=== PATIENT | male | born 1935 | race African-American/Black ===

== ENCOUNTER 2017-12-14 18:41 | Inpatient (IN) | payer MEDICARE, OTHER ==
[~2017-12-14] VITALS: Ht 177.8 cm; Wt 87.1 kg
[2017-12-14 19:17] VITALS: BP 185/65
[2017-12-14 19:25] LABS: BASOPHILS % (AUTO) 0.8 % (0.0-2.0); EOSINOPHILS % (AUTO) 0.3 % (0.0-3.0); HEMATOCRIT 27.8 % (42.0-52.0); HEMOGLOBIN 8.4 G/DL (14.2-18.0); LYMPHOCYTES % (AUTO) 15.3 % (20.0-45.0); MEAN CORPUSCULAR VOLUME 89 FL (80-99); MONOCYTES % (AUTO) 4.8 % (1.0-10.0); NEUTROPHILS % (AUTO) 78.7 % (45.0-75.0); PLATELET COUNT 237 K/UL (150-450); RED BLOOD COUNT 3.14 M/UL (4.70-6.10); RED CELL DISTRIBUTION WIDTH 14.4 % (11.6-14.8); WHITE BLOOD COUNT 5.3 K/UL (4.8-10.8)
[2017-12-14 19:26] LABS: INR 1.3 (0.9-1.1)
[2017-12-14 19:33] LABS: ANION GAP 8 mmol/L (5-15); BLOOD UREA NITROGEN 41 mg/dL (7-18); CALCIUM 9.2 MG/DL (8.5-10.1); CARBON DIOXIDE 27 MMOL/L (21-32); CHLORIDE 108 MMOL/L (98-107); CREATININE 3.7 MG/DL (0.55-1.30); POTASSIUM 4.1 MMOL/L (3.5-5.1); SODIUM 143 MMOL/L (136-145)
[2017-12-14 19:41] LABS: ALANINE AMINOTRANSFERASE 10 U/L (12-78); ALBUMIN 2.8 G/DL (3.4-5.0); ALBUMIN/GLOBULIN RATIO 0.8 (1.0-2.7); ALKALINE PHOSPHATASE 53 U/L (46-116); ASPARTATE AMINO TRANSFERASE 29 U/L (15-37); BILIRUBIN,TOTAL 0.7 MG/DL (0.2-1.0); CREATINE KINASE 104 U/L (26-308)
[2017-12-14] MEDS ORDERED: ASPIR 8181 MG ORAL (20:04)
[2017-12-14] MEDS ORDERED: ADALAT20 MG ORAL (20:04)
[2017-12-14] MEDS ORDERED: Nitroglycerin 2% oint pkt TOPIC ONE (20:30)
[2017-12-14] MEDS ORDERED: NIFEdipine 10mg cap ORAL STA (20:30)
--- NOTE | 2017-12-14 20:45 | Emergency Room Report ---
History of Present Illness General Chief Complaint: Generalized Weakness Source: Patient Present Illness HPI Patient presents with generalized weakness and HUTCHISON. H/O CHF in past. Not on Lasix at this time. Denies chest pain. Denies fevers or chills. Unable to walk to store to get food because of weakness and edema. Stopped Nifedipine because he ran out. Stopped iron. Stools loose. Now normal color as not on iron. Denies SI or HI. 8 months ago, was evaluated for moving to assisted living by [facility], but at that time he felt he could live by himself. 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 Reviewed Nursing Documentation: PMH: Agreed; PSxH: Agreed Nursing Documentation-PM Past Medical History: No History, Except For Hx Hypertension: Yes Review of Systems All Other Systems: negative except mentioned in HPI Physical Exam Vital Signs Date Time Temp Pulse Resp B/P (MAP) Pulse Ox O2 Delivery O2 Flow Rate FiO2 12/14/17 18:34 99.7 74 17 190/88 99 Room Air 99.7 Sp02 EP Interpretation: reviewed, normal General Appearance: no apparent distress, alert, GCS 15, non-toxic, Chronically Ill Head: normocephalic, atraumatic Eyes: bilateral eye PERRL, bilateral eye conjunctivae pale ENT: moist mucus membranes Respiratory: decreased breath sounds, crackles Cardiovascular #1: JVD - clavicle at 45 degrees, bradycardia, systolic murmur - 4/6 LSB, edema - 4+ brawney bilat - also 3+ edema of hands to elbows Gastrointestinal: normal bowel sounds, non tender, soft, no mass Genitourinary: no CVA tenderness Musculoskeletal: normal range of motion, no calf tenderness, Stephen's Sign negative Neurologic: alert, oriented x3, sensory intact, speech normal, motor weakness - bilateral LE Psychiatric: depressed affect Skin: other - brawney edema and chronic changes LE Procedures Critical Care Time Critical Care Time Total Critical Care Time: 30 min bedside evaluation and treatment excludes procedures (EKG). Reason for critical care: NSTEMI, HTN, CHF, UTI, sharif, renal failure, hypothyroidism Possible complications: hypotension, hypertension, CO, shock, arrhythmias, metabolic acidosis, end organ damage, respiratory failure. Interventions: lasix, aspirin, tx HTN, antibiotics, repeated evaluations Course: Patient with dyspnea and weakness. CHF clinically with initial tx. + troponin called. Tx aspirin. Also addressed HTN. Bradycardic, unable to give beta blockers. UTI tx with abx. Discussed with admitting MD. Improved with treatment. Consultations: nursing staff, EMS, admitting MD Performed by: Dr. Ramos Tolerated well condition = serious Medical Decision Making Diagnostic Impression: Primary Impression: NSTEMI (non-ST elevated myocardial infarction) Additional Impressions: CHF (congestive heart failure) Qualified Codes: I50.33 - Acute on chronic diastolic (congestive) heart failure Adult hypothyroidism Renal failure Qualified Codes: N17.0 - Acute kidney failure with tubular necrosis; N18.3 - Chronic kidney disease, stage 3 (moderate) Anemia Qualified Codes: D64.9 - Anemia, unspecified UTI (urinary tract infection) Qualified Codes: N39.0 - Urinary tract infection, site not specified Edema Qualified Codes: R60.9 - Edema, unspecified Valvular heart disease Bradycardia ER Course Patient with obvious anasarca and dyspnea with weakness. DDx: occult infection , chf, AMI, malnutrition, hypothyroidism amongst others. Evaluation with EKG, CXR and labs. Treatment with lasix. Cardiac evaluation. Unstable social situation. Systolic murmur of concern. EKG with bradycardia. CXR CHF with larger L effusion. Troponin elevated. Patient given aspirin. Labs with ARF, anemia. Pyuria. Blood pressure high. Patient treated with hydralazine, nifedipine as he has not taken a dose and also Nitrol paste. BP improved. Antibiotics started for UTI. Concern for sharif and edema with elevated TSH. Consider myxedema. Admit SDU, Dr. Gaston. Laboratory Tests Test 12/14/17 19:00 White Blood Count 5.3 K/UL (4.8-10.8) Red Blood Count 3.14 M/UL (4.70-6.10) L Hemoglobin 8.4 G/DL (14.2-18.0) L Hematocrit 27.8 % (42.0-52.0) L Mean Corpuscular Volume 89 FL (80-99) Mean Corpuscular Hemoglobin 26.7 PG (27.0-31.0) L Mean Corpuscular Hemoglobin Concent 30.2 G/DL (32.0-36.0) L Red Cell Distribution Width 14.4 % (11.6-14.8) Platelet Count 237 K/UL (150-450) Mean Platelet Volume 7.4 FL (6.5-10.1) Neutrophils (%) (Auto) 78.7 % (45.0-75.0) H Lymphocytes (%) (Auto) 15.3 % (20.0-45.0) L Monocytes (%) (Auto) 4.8 % (1.0-10.0) Eosinophils (%) (Auto) 0.3 % (0.0-3.0) Basophils (%) (Auto) 0.8 % (0.0-2.0) Erythrocyte Sedimentation Rate 27 MM/HR (0-20) H Prothrombin Time 13.2 SEC (9.30-11.50) H Prothrombin Time INR 1.3 (0.9-1.1) H PTT 30 SEC (23-33) Sodium Level 143 MMOL/L (136-145) Potassium Level 4.1 MMOL/L (3.5-5.1) Chloride Level 108 MMOL/L (98-107) H Carbon Dioxide Level 27 MMOL/L (21-32) Anion Gap 8 mmol/L (5-15) Blood Urea Nitrogen 41 mg/dL (7-18) H Creatinine 3.7 MG/DL (0.55-1.30) H Estimate Glomerular Filtration Rate mL/min (>60) Glucose Level 95 MG/DL (74-106) Lactic Acid Level 1.70 mmol/L (0.4-2.0) Calcium Level 9.2 MG/DL (8.5-10.1) Total Bilirubin 0.7 MG/DL (0.2-1.0) Aspartate Amino Transferase (AST) 29 U/L (15-37) Alanine Aminotransferase (ALT) 10 U/L (12-78) L Alkaline Phosphatase 53 U/L (46-116) Total Creatine Kinase 104 U/L (26-308) Troponin I 0.090 ng/mL (0.000-0.056) Pro-B-Type Natriuretic Peptide > 35182 pg/mL (0-125) H Total Protein 6.2 G/DL (6.4-8.2) L Albumin 2.8 G/DL (3.4-5.0) L Globulin 3.4 g/dL Albumin/Globulin Ratio 0.8 (1.0-2.7) L Thyroid Stimulating Hormone (TSH) 7.706 uiU/mL (0.358-3.740) EKG Diagnostic Results Rate: bradycardiac Rhythm: other - sharif ST Segments: no acute changes Rhythm Strip Diag. Results EP Interpretation: yes Rhythm: no PVC's, other - sharif Chest X-Ray Diagnostic Results Chest X-Ray Diagnostic Results : Chest X-Ray Ordered: Yes # of Views/Limited/Complete: 1 View Indication: Shortness of Breath EP Interpretation: Yes Interpretation: no pneumothorax, other - chf, L effusion Impression: Other Electronically Signed by: Electronically signed by Orion Ramos MD Last Vital Signs Date Time Temp Pulse Resp B/P (MAP) Pulse Ox O2 Delivery O2 Flow Rate FiO2 12/15/17 00:09 Room Air 12/15/17 00:09 98.0 48 20 126/60 (82) 96 98.0 Status: improved Disposition: ADMITTED INPATIENT Condition: Serious Referrals: [facility],REFERRING (PCP) Orion Ramos M.D. Dec 14, 2017 20:45
[2017-12-14] MEDS ORDERED: Ketorolac 30mg Inj IV PRN (21:15)
[2017-12-14] MEDS ORDERED: Nitroglycerin Subl 0.4mg tab SL PRN (21:15)
[2017-12-14] MEDS ORDERED: Albuterol/Ipratropium 3ml neb HHN PRN (21:15)
[2017-12-14] MEDS ORDERED: Morphine Sulfate 2mg/ml Inj(IV/IM USE ONLY) IVP PRN (21:15)
[2017-12-14] MEDS ORDERED: dilTIAZem HCl 25mg/5ml Inj IV PRN (21:15)
[2017-12-14] MEDS ORDERED: Miralax 17gm pkt ORAL PRN (21:15)
[2017-12-14 21:16] LABS: APPEARANCE,URINE SLIGHTLY CLOUDY; BILIRUBIN, URINE NEGATIVE (NEGATIVE); COLOR,URINE PALE YELLOW; GLUCOSE, URINE (UA) NEGATIVE (NEGATIVE); KETONES,URINE NEGATIVE (NEGATIVE); LEUKOCYTE ESTERASE ,URINE 3+ (NEGATIVE); NITRITE,URINE NEGATIVE (NEGATIVE); PH,URINE 5 (4.5-8.0); PROTEIN,URINE 3+ (NEGATIVE); UROBILINOGEN,URINE NORMAL MG/DL (0.0-1.0)
[2017-12-14 21:23] VITALS: BP 173/52
[2017-12-14] MEDS ORDERED: cefTRIAXone 1 GM in D5W 55 ML IVPB ONE (21:45)
[2017-12-14 22:00] VITALS: BP 128/43
[2017-12-14 22:35] VITALS: BP 138/58
[2017-12-15 00:09] VITALS: BP 126/60
[2017-12-15 04:00] VITALS: BP 123/56
[2017-12-15 05:19] LABS: BASOPHILS % (AUTO) 0.8 % (0.0-2.0); EOSINOPHILS % (AUTO) 0.3 % (0.0-3.0); HEMATOCRIT 30.3 % (42.0-52.0); HEMOGLOBIN 9.2 G/DL (14.2-18.0); MEAN CORPUSCULAR VOLUME 88 FL (80-99); MONOCYTES % (AUTO) 5.7 % (1.0-10.0); NEUTROPHILS % (AUTO) 71.2 % (45.0-75.0); PLATELET COUNT 240 K/UL (150-450); RED BLOOD COUNT 3.44 M/UL (4.70-6.10); RED CELL DISTRIBUTION WIDTH 14.7 % (11.6-14.8); WHITE BLOOD COUNT 6.1 K/UL (4.8-10.8)
[2017-12-15 05:52] LABS: INR 1.2 (0.9-1.1)
[2017-12-15 06:37] LABS: CHOLESTEROL 194 MG/DL (< 200); HDL CHOLESTEROL 50 MG/DL (40-60); TRIGLYCERIDES 91 MG/DL (30-150)
[2017-12-15 08:00] VITALS: BP 165/92
[2017-12-15] MEDS ORDERED: Aspirin Baby 81mg ORAL SCH (09:00)
[2017-12-15] MEDS ORDERED: Heparin 5000 units/ml inj SUBQ SCH (09:00)
[2017-12-15] MEDS: Enalaprilat 2.5mg/2ml Inj IV PRN ×2 (09:05→16:14)
--- NOTE | 2017-12-15 10:09 | History and Physical ---
History of Present Illness General Reason for Hospitalization: Generalized Weakness Present Illness HPI 82 year old male with hx of HTN, brought in by paramedics with CC of increased swelling of legs and increased weakness. He is not able to walk any more. Allergies: Coded Allergies: AMOXICILLIN (Verified Allergy, Unknown, 01/01/11) Medication History Scheduled Aspirin* (Aspir 81*), 81 MG ORAL DAILY, (Reported) Nifedipine (Nifedipine*), 30 MG ORAL DAILY, (Reported) Patient History Healthcare decision maker none Resuscitation status Full Code Advanced Directive on File No Past Medical/Surgical History Past Medical/Surgical History: (1) Adult hypothyroidism (2) Edema Review of Systems All Other Systems: negative except mentioned in HPI Physical Exam General Appearance: WD/WN Lines, tubes and drains: peripheral HEENT: normocephalic, anicteric Respiratory/Chest: chest wall non-tender, lungs clear Cardiovascular/Chest: normal peripheral pulses, normal rate Abdomen: normal bowel sounds, non tender Extremities: severe edema Skin Exam: normal pigmentation Last 24 Hour Vital Signs Date Time Temp Pulse Resp B/P (MAP) Pulse Ox O2 Delivery O2 Flow Rate FiO2 12/15/17 09:05 165/92 12/15/17 08:19 48 12/15/17 08:00 97.2 60 18 165/92 (116) 97 97.2 12/15/17 08:00 Room Air 12/15/17 04:00 Room Air 12/15/17 04:00 98.0 58 20 123/56 (78) 96 98.0 12/15/17 04:00 58 12/15/17 00:09 Room Air 12/15/17 00:09 98.0 48 20 126/60 (82) 96 98.0 12/15/17 00:00 48 12/14/17 22:35 97.5 61 19 138/58 (84) 95 97.5 12/14/17 22:30 Room Air 12/14/17 22:30 Room Air 12/14/17 22:10 99.3 59 12 128/43 97 Room Air 99.3 12/14/17 22:00 99.3 59 12 128/43 97 Room Air 99.3 12/14/17 21:23 99.2 58 12 173/52 100 Room Air 99.2 12/14/17 20:44 180/67 8/8/18 20:43 180/67 12/14/17 20:43 71 180/67 12/14/17 19:17 99.4 61 14 185/65 98 Room Air 99.4 12/14/17 18:34 99.7 74 17 190/88 99 Room Air 99.7 Intake and Output 12/14/17 12/15/17 19:00 07:00 Intake Total 0 ml Output Total 700 ml Balance -700 ml Intake Oral 0 ml Output Urine Total 700 ml # Bowel Movements 1 Laboratory Tests Test 12/14/17 19:00 12/14/17 20:50 12/15/17 04:24 White Blood Count 5.3 K/UL (4.8-10.8) 6.1 K/UL (4.8-10.8) Red Blood Count 3.14 M/UL (4.70-6.10) L 3.44 M/UL (4.70-6.10) L Hemoglobin 8.4 G/DL (14.2-18.0) L 9.2 G/DL (14.2-18.0) L Hematocrit 27.8 % (42.0-52.0) L 30.3 % (42.0-52.0) L Mean Corpuscular Volume 89 FL (80-99) 88 FL (80-99) Mean Corpuscular Hemoglobin 26.7 PG (27.0-31.0) L 26.8 PG (27.0-31.0) L Mean Corpuscular Hemoglobin Concent 30.2 G/DL (32.0-36.0) L 30.5 G/DL (32.0-36.0) L Red Cell Distribution Width 14.4 % (11.6-14.8) 14.7 % (11.6-14.8) Platelet Count 237 K/UL (150-450) 240 K/UL (150-450) Mean Platelet Volume 7.4 FL (6.5-10.1) 8.8 FL (6.5-10.1) Neutrophils (%) (Auto) 78.7 % (45.0-75.0) H 71.2 % (45.0-75.0) Lymphocytes (%) (Auto) 15.3 % (20.0-45.0) L 22.0 % (20.0-45.0) Monocytes (%) (Auto) 4.8 % (1.0-10.0) 5.7 % (1.0-10.0) Eosinophils (%) (Auto) 0.3 % (0.0-3.0) 0.3 % (0.0-3.0) Basophils (%) (Auto) 0.8 % (0.0-2.0) 0.8 % (0.0-2.0) Erythrocyte Sedimentation Rate 27 MM/HR (0-20) H Prothrombin Time 13.2 SEC (9.30-11.50) H 12.7 SEC (9.30-11.50) H Prothromb Time International Ratio 1.3 (0.9-1.1) H 1.2 (0.9-1.1) H Activated Partial Thromboplast Time 30 SEC (23-33) 30 SEC (23-33) Sodium Level 143 MMOL/L (136-145) Potassium Level 4.1 MMOL/L (3.5-5.1) Chloride Level 108 MMOL/L (98-107) H Carbon Dioxide Level 27 MMOL/L (21-32) Anion Gap 8 mmol/L (5-15) Blood Urea Nitrogen 41 mg/dL (7-18) H Creatinine 3.7 MG/DL (0.55-1.30) H Estimat Glomerular Filtration Rate mL/min (>60) Glucose Level 95 MG/DL (74-106) Lactic Acid Level 1.70 mmol/L (0.4-2.0) Calcium Level 9.2 MG/DL (8.5-10.1) Total Bilirubin 0.7 MG/DL (0.2-1.0) Aspartate Amino Transf (AST/SGOT) 29 U/L (15-37) Alanine Aminotransferase (ALT/SGPT) 10 U/L (12-78) L Alkaline Phosphatase 53 U/L (46-116) Total Creatine Kinase 104 U/L (26-308) Troponin I 0.090 ng/mL (0.000-0.056) 0.078 ng/mL (0.000-0.056) Pro-B-Type Natriuretic Peptide > 84219 pg/mL (0-125) H Total Protein 6.2 G/DL (6.4-8.2) L Albumin 2.8 G/DL (3.4-5.0) L Globulin 3.4 g/dL Albumin/Globulin Ratio 0.8 (1.0-2.7) L Thyroid Stimulating Hormone (TSH) 7.706 uiU/mL (0.358-3.740) 7.160 uiU/mL (0.358-3.740) Urine Color Pale yellow Urine Appearance Slightly cloudy Urine pH 5 (4.5-8.0) Urine Specific [place] 1.015 (1.005-1.035) Urine Protein 3+ (NEGATIVE) H Urine Glucose (UA) Negative (NEGATIVE) Urine Ketones Negative (NEGATIVE) Urine Occult Blood 4+ (NEGATIVE) H Urine Nitrite Negative (NEGATIVE) Urine Bilirubin Negative (NEGATIVE) Urine Urobilinogen Normal MG/DL (0.0-1.0) Urine Leukocyte Esterase 3+ (NEGATIVE) H Urine RBC 5-10 /HPF (0 - 0) H Urine WBC 10-15 /HPF (0 - 0) H Urine Squamous Epithelial Cells None /LPF (NONE/OCC) Urine Bacteria Moderate /HPF (NONE) H C-Reactive Protein, Quantitative 0.9 mg/dL (0.00-0.90) Triglycerides Level 91 MG/DL (30-150) Cholesterol Level 194 MG/DL (< 200) LDL Cholesterol 115 mg/dL (<100) H HDL Cholesterol 50 MG/DL (40-60) Cholesterol/HDL Ratio 3.9 (3.3-4.4) Height (Feet): 5 Height (Inches): 10.00 Weight (Pounds): 192 Medications Current Medications Medications (Trade) Dose Ordered Sig/Dari Route PRN Reason Start Time Stop Time Status Last Admin Dose Admin Acetaminophen (Tylenol) 650 mg Q4H PRN ORAL FEVER 12/14/17 21:15 01/13/18 21:14 Albuterol/ Ipratropium (Albuterol/ Ipratropium) 3 ml Q4H PRN HHN Shortness of Breath 12/14/17 21:15 12/19/17 21:14 Aspirin (ASA) 162 mg DAILY ORAL 12/15/17 09:00 01/14/18 08:59 12/15/17 09:04 Ceftriaxone Sodium 1 gm/ Dextrose 55 ml @ 110 mls/hr Q24H IVPB 12/15/17 10:00 12/22/17 09:59 UNV Diltiazem HCl (Cardizem) 10 mg Q1H PRN IV heart rate more than 120 12/14/17 21:15 01/13/18 21:14 Enalaprilat (Vasotec) 2.5 mg Q6H PRN IV sbp more than 160 12/14/17 21:15 01/13/18 21:14 12/15/17 09:05 Heparin Sodium (Porcine) (Heparin 5000 units/ml) 5,000 units EVERY 12 HOURS SUBQ 12/15/17 09:00 01/14/18 08:59 12/15/17 09:04 Nitroglycerin (Ntg) 0.4 mg Q5M PRN SL Prn Chest Pain 12/14/17 21:15 01/13/18 21:14 Ondansetron HCl (Zofran) 4 mg Q6H PRN IVP Nausea & Vomiting 12/14/17 21:15 01/13/18 21:14 Polyethylene Glycol (Miralax) 17 gm DAILYPRN PRN ORAL Constipation 12/14/17 21:15 01/13/18 21:14 Temazepam (Restoril) 15 mg HSPRN PRN ORAL Insomnia 12/14/17 21:15 12/21/17 21:14 Assessment/Plan Problem List: (1) Afib ICD Codes: I48.91 - Unspecified atrial fibrillation SNOMED: 53327400 (2) UTI (urinary tract infection) ICD Codes: N39.0 - Urinary tract infection, site not specified SNOMED: 86141495 Qualifiers: Qualified Codes: N39.0 - Urinary tract infection, site not specified (3) CHF (congestive heart failure) ICD Codes: I50.9 - Heart failure, unspecified SNOMED: 82349185 Qualifiers: Qualified Codes: I50.33 - Acute on chronic diastolic (congestive) heart failure (4) Anemia ICD Codes: D64.9 - Anemia, unspecified SNOMED: 768002121 Qualifiers: Qualified Codes: D64.9 - Anemia, unspecified (5) Edema ICD Codes: R60.9 - Edema, unspecified SNOMED: 978843980, [id number] Qualifiers: Qualified Codes: R60.9 - Edema, unspecified Assessment/Plan monitor BP diuretics renal studies, renal US venous doppler of legs. cardio to see echo Charito Gaston MD Dec 15, 2017 10:09
[2017-12-15] MEDS ORDERED: NIFEdipine 10mg cap ORAL SCH ×3 (10:30→14:00)
[2017-12-15 10:44] LABS: CREATINE KINASE 95 U/L (26-308)
--- NOTE | 2017-12-15 10:46 | Diagnostic Imaging Report ---
Indication: Shortness of breath Technique: One view of the chest Comparison: 11/26/2007 Findings: There is a large left pleural effusion present. There is bilateral pulmonary venous congestion. The heart is enlarged Impression: Cardiomegaly Bilateral pulmonary venous congestion than left pleural effusion likely reflects congestive heart failure. Correlate with clinical findings
[2017-12-15 11:21] LABS: APPEARANCE,URINE TURBID; BILIRUBIN, URINE NEGATIVE (NEGATIVE); COLOR,URINE PALE YELLOW; GLUCOSE, URINE (UA) NEGATIVE (NEGATIVE); KETONES,URINE NEGATIVE (NEGATIVE); LEUKOCYTE ESTERASE ,URINE 3+ (NEGATIVE); NITRITE,URINE NEGATIVE (NEGATIVE); PH,URINE 5 (4.5-8.0); PROTEIN,URINE 3+ (NEGATIVE); UROBILINOGEN,URINE NORMAL MG/DL (0.0-1.0)
--- NOTE | 2017-12-15 11:21 | Consultation ---
History of Present Illness General Date patient seen: Dec 15, 2017 Chief Complaint: Generalized Weakness Present Illness HPI 82 year old male with hx of HTN, cognitive impairment brought in by paramedics with CC of increased swelling of legs and increased weakness. the pt has episodes of anxiety. Allergies: Coded Allergies: AMOXICILLIN (Verified Allergy, Unknown, 01/01/11) Medication History Scheduled Aspirin* (Aspir 81*), 81 MG ORAL DAILY, (Reported) Nifedipine (Nifedipine*), 30 MG ORAL DAILY, (Reported) Patient History Limited by: medical condition History Provided By: Patient, Medical Record, PMD Healthcare decision maker none Resuscitation status Full Code Advanced Directive on File No Past Medical/Surgical History Past Medical/Surgical History: (1) Bradycardia (2) Anemia (3) Edema (4) CHF (congestive heart failure) (5) Renal failure (6) UTI (urinary tract infection) (7) Adult hypothyroidism (8) Valvular heart disease (9) NSTEMI (non-ST elevated myocardial infarction) (10) Afib Review of Systems Psychiatric: Reports: prior hx, anxiety Physical Exam General Appearance: alert, confused, agitated Last 24 Hour Vital Signs Date Time Temp Pulse Resp B/P (MAP) Pulse Ox O2 Delivery O2 Flow Rate FiO2 12/15/17 09:05 165/92 12/15/17 08:19 48 12/15/17 08:00 97.2 60 18 165/92 (116) 97 97.2 12/15/17 08:00 Room Air 12/15/17 04:00 Room Air 12/15/17 04:00 98.0 58 20 123/56 (78) 96 98.0 12/15/17 04:00 58 12/15/17 00:09 Room Air 12/15/17 00:09 98.0 48 20 126/60 (82) 96 98.0 12/15/17 00:00 48 12/14/17 22:35 97.5 61 19 138/58 (84) 95 97.5 12/14/17 22:30 Room Air 12/14/17 22:30 Room Air 12/14/17 22:10 99.3 59 12 128/43 97 Room Air 99.3 12/14/17 22:00 99.3 59 12 128/43 97 Room Air 99.3 12/14/17 21:23 99.2 58 12 173/52 100 Room Air 99.2 12/14/17 20:44 180/67 12/14/17 20:43 180/67 12/14/17 20:43 71 180/67 12/14/17 19:17 99.4 61 14 185/65 98 Room Air 99.4 12/14/17 18:34 99.7 74 17 190/88 99 Room Air 99.7 Intake and Output 12/14/17 12/15/17 19:00 07:00 Intake Total 0 ml Output Total 700 ml Balance -700 ml Intake Oral 0 ml Output Urine Total 700 ml # Bowel Movements 1 Laboratory Tests Test 12/14/17 19:00 12/14/17 20:50 12/15/17 04:24 12/15/17 10:45 White Blood Count 5.3 K/UL (4.8-10.8) 6.1 K/UL (4.8-10.8) Red Blood Count 3.14 M/UL (4.70-6.10) L 3.44 M/UL (4.70-6.10) L Hemoglobin 8.4 G/DL (14.2-18.0) L 9.2 G/DL (14.2-18.0) L Hematocrit 27.8 % (42.0-52.0) L 30.3 % (42.0-52.0) L Mean Corpuscular Volume 89 FL (80-99) 88 FL (80-99) Mean Corpuscular Hemoglobin 26.7 PG (27.0-31.0) L 26.8 PG (27.0-31.0) L Mean Corpuscular Hemoglobin Concent 30.2 G/DL (32.0-36.0) L 30.5 G/DL (32.0-36.0) L Red Cell Distribution Width 14.4 % (11.6-14.8) 14.7 % (11.6-14.8) Platelet Count 237 K/UL (150-450) 240 K/UL (150-450) Mean Platelet Volume 7.4 FL (6.5-10.1) 8.8 FL (6.5-10.1) Neutrophils (%) (Auto) 78.7 % (45.0-75.0) H 71.2 % (45.0-75.0) Lymphocytes (%) (Auto) 15.3 % (20.0-45.0) L 22.0 % (20.0-45.0) Monocytes (%) (Auto) 4.8 % (1.0-10.0) 5.7 % (1.0-10.0) Eosinophils (%) (Auto) 0.3 % (0.0-3.0) 0.3 % (0.0-3.0) Basophils (%) (Auto) 0.8 % (0.0-2.0) 0.8 % (0.0-2.0) Erythrocyte Sedimentation Rate 27 MM/HR (0-20) H Prothrombin Time 13.2 SEC (9.30-11.50) H 12.7 SEC (9.30-11.50) H Prothromb Time International Ratio 1.3 (0.9-1.1) H 1.2 (0.9-1.1) H Activated Partial Thromboplast Time 30 SEC (23-33) 30 SEC (23-33) Sodium Level 143 MMOL/L (136-145) Potassium Level 4.1 MMOL/L (3.5-5.1) Chloride Level 108 MMOL/L (98-107) H Carbon Dioxide Level 27 MMOL/L (21-32) Anion Gap 8 mmol/L (5-15) Blood Urea Nitrogen 41 mg/dL (7-18) H Creatinine 3.7 MG/DL (0.55-1.30) H Estimat Glomerular Filtration Rate mL/min (>60) Glucose Level 95 MG/DL (74-106) Lactic Acid Level 1.70 mmol/L (0.4-2.0) Calcium Level 9.2 MG/DL (8.5-10.1) Total Bilirubin 0.7 MG/DL (0.2-1.0) Aspartate Amino Transf (AST/SGOT) 29 U/L (15-37) Alanine Aminotransferase (ALT/SGPT) 10 U/L (12-78) L Alkaline Phosphatase 53 U/L (46-116) Total Creatine Kinase 104 U/L (26-308) 95 U/L (26-308) Troponin I 0.090 ng/mL (0.000-0.056) 0.078 ng/mL (0.000-0.056) Pro-B-Type Natriuretic Peptide > 96825 pg/mL (0-125) H Total Protein 6.2 G/DL (6.4-8.2) L Albumin 2.8 G/DL (3.4-5.0) L Globulin 3.4 g/dL Albumin/Globulin Ratio 0.8 (1.0-2.7) L Thyroid Stimulating Hormone (TSH) 7.706 uiU/mL (0.358-3.740) 7.160 uiU/mL (0.358-3.740) Urine Color Pale yellow Pending Urine Appearance Slightly cloudy Pending Urine pH 5 (4.5-8.0) Pending Urine Specific [place] 1.015 (1.005-1.035) Pending Urine Protein 3+ (NEGATIVE) H Pending Urine Glucose (UA) Negative (NEGATIVE) Pending Urine Ketones Negative (NEGATIVE) Pending Urine Occult Blood 4+ (NEGATIVE) H Pending Urine Nitrite Negative (NEGATIVE) Pending Urine Bilirubin Negative (NEGATIVE) Pending Urine Urobilinogen Normal MG/DL (0.0-1.0) Pending Urine Leukocyte Esterase 3+ (NEGATIVE) H Pending Urine RBC 5-10 /HPF (0 - 0) H Pending Urine WBC 10-15 /HPF (0 - 0) H Pending Urine Squamous Epithelial Cells None /LPF (NONE/OCC) Pending Urine Bacteria Moderate /HPF (NONE) H Pending Uric Acid 10.6 MG/DL (2.6-7.2) H C-Reactive Protein, Quantitative 0.9 mg/dL (0.00-0.90) Triglycerides Level 91 MG/DL (30-150) Cholesterol Level 194 MG/DL (< 200) LDL Cholesterol 115 mg/dL (<100) H HDL Cholesterol 50 MG/DL (40-60) Cholesterol/HDL Ratio 3.9 (3.3-4.4) Urine Eosinophils Pending Urine Random Sodium Pending Urine Potassium Timed Pending Height (Feet): 5 Height (Inches): 10.00 Weight (Pounds): 192 Medications Current Medications Medications (Trade) Dose Ordered Sig/Dari Route PRN Reason Start Time Stop Time Status Last Admin Dose Admin Acetaminophen (Tylenol) 650 mg Q4H PRN ORAL FEVER 12/14/17 21:15 01/13/18 21:14 Albuterol/ Ipratropium (Albuterol/ Ipratropium) 3 ml Q4H PRN HHN Shortness of Breath 12/14/17 21:15 12/19/17 21:14 Aspirin (ASA) 162 mg DAILY ORAL 12/15/17 09:00 01/14/18 08:59 12/15/17 09:04 Ceftriaxone Sodium 1 gm/ Dextrose 55 ml @ 110 mls/hr Q24H IVPB 12/15/17 21:00 12/22/17 20:59 Diltiazem HCl (Cardizem) 10 mg Q1H PRN IV heart rate more than 120 12/14/17 21:15 01/13/18 21:14 Enalaprilat (Vasotec) 2.5 mg Q6H PRN IV sbp more than 160 12/14/17 21:15 01/13/18 21:14 12/15/17 09:05 Furosemide 100 mg/ Dextrose 100 ml @ 10 mls/hr Q10H IV 12/15/17 11:30 01/14/18 11:29 Heparin Sodium (Porcine) (Heparin 5000 units/ml) 5,000 units EVERY 12 HOURS SUBQ 12/15/17 09:00 01/14/18 08:59 12/15/17 09:04 Nifedipine (Adalat) 10 mg Q8HR ORAL 12/15/17 14:00 01/14/18 13:59 Nitroglycerin (Ntg) 0.4 mg Q5M PRN SL Prn Chest Pain 12/14/17 21:15 01/13/18 21:14 Ondansetron HCl (Zofran) 4 mg Q6H PRN IVP Nausea & Vomiting 12/14/17 21:15 01/13/18 21:14 Polyethylene Glycol (Miralax) 17 gm DAILYPRN PRN ORAL Constipation 12/14/17 21:15 01/13/18 21:14 Temazepam (Restoril) 15 mg HSPRN PRN ORAL Insomnia 12/14/17 21:15 12/21/17 21:14 Assessment/Plan Assessment/Plan encephalopathy due to [facility] -seroquel prn Marcela Arriaza MD Dec 15, 2017 11:21
[2017-12-15 12:00] VITALS: BP 147/85
--- NOTE | 2017-12-15 12:10 | Consultation ---
History of Present Illness General Date patient seen: Dec 15, 2017 Chief Complaint: Generalized Weakness Present Illness HPI 82 y/o male presents wtih weakness, LE edema, elevated BP. Troponin elevated, TSH elevated, uric acid elevated, UA positive, CXR with congestion. He was given lasix in ER. No WBC, no fevers, no sick contacts, no travel. Allergies: Coded Allergies: AMOXICILLIN (Verified Allergy, Unknown, 01/01/11) Medication History Scheduled Aspirin* (Aspir 81*), 81 MG ORAL DAILY, (Reported) Nifedipine (Nifedipine*), 30 MG ORAL DAILY, (Reported) Patient History Healthcare decision maker none Resuscitation status Full Code Advanced Directive on File No Review of Systems Constitutional: Reports: no symptoms Eye: Reports: no symptoms ENT: Reports: no symptoms Respiratory: Reports: shortness of breath Cardiovascular: Reports: no symptoms Gastrointestinal: Reports: no symptoms Genitourinary: Reports: no symptoms Musculoskeletal: Reports: no symptoms Skin: Reports: no symptoms Psychiatric: Reports: no symptoms Neurological: Reports: no symptoms Endocrine: Reports: no symptoms Hematologic/Lymphatic: Reports: no symptoms Physical Exam General Appearance: no apparent distress, alert Lines, tubes and drains: peripheral HEENT: normocephalic, atraumatic Neck: non-tender, normal alignment, supple Respiratory/Chest: chest wall non-tender, crackles/rales Cardiovascular/Chest: normal peripheral pulses, JVD Abdomen: normal bowel sounds, non tender Genitourinary/Rectal: normal genital exam Extremities: normal range of motion, non-tender, moderate edema Skin Exam: normal pigmentation Neurologic: [employer] II-XII grossly normal Last 24 Hour Vital Signs Date Time Temp Pulse Resp B/P (MAP) Pulse Ox O2 Delivery O2 Flow Rate FiO2 12/15/17 09:05 165/92 12/15/17 08:19 48 12/15/17 08:00 97.2 60 18 165/92 (116) 97 97.2 12/15/17 08:00 Room Air 12/15/17 04:00 Room Air 12/15/17 04:00 98.0 58 20 123/56 (78) 96 98.0 12/15/17 04:00 58 12/15/17 00:09 Room Air 12/15/17 00:09 98.0 48 20 126/60 (82) 96 98.0 8/9/18 00:00 48 12/14/17 22:35 97.5 61 19 138/58 (84) 95 97.5 12/14/17 22:30 Room Air 12/14/17 22:30 Room Air 12/14/17 22:10 99.3 59 12 128/43 97 Room Air 99.3 12/14/17 22:00 99.3 59 12 128/43 97 Room Air 99.3 12/14/17 21:23 99.2 58 12 173/52 100 Room Air 99.2 12/14/17 20:44 180/67 12/14/17 20:43 180/67 12/14/17 20:43 71 180/67 12/14/17 19:17 99.4 61 14 185/65 98 Room Air 99.4 12/14/17 18:34 99.7 74 17 190/88 99 Room Air 99.7 Intake and Output 12/14/17 12/15/17 19:00 07:00 Intake Total 0 ml Output Total 700 ml Balance -700 ml Intake Oral 0 ml Output Urine Total 700 ml # Bowel Movements 1 Laboratory Tests Test 12/14/17 19:00 12/14/17 20:50 12/15/17 04:24 12/15/17 10:45 White Blood Count 5.3 K/UL (4.8-10.8) 6.1 K/UL (4.8-10.8) Red Blood Count 3.14 M/UL (4.70-6.10) L 3.44 M/UL (4.70-6.10) L Hemoglobin 8.4 G/DL (14.2-18.0) L 9.2 G/DL (14.2-18.0) L Hematocrit 27.8 % (42.0-52.0) L 30.3 % (42.0-52.0) L Mean Corpuscular Volume 89 FL (80-99) 88 FL (80-99) Mean Corpuscular Hemoglobin 26.7 PG (27.0-31.0) L 26.8 PG (27.0-31.0) L Mean Corpuscular Hemoglobin Concent 30.2 G/DL (32.0-36.0) L 30.5 G/DL (32.0-36.0) L Red Cell Distribution Width 14.4 % (11.6-14.8) 14.7 % (11.6-14.8) Platelet Count 237 K/UL (150-450) 240 K/UL (150-450) Mean Platelet Volume 7.4 FL (6.5-10.1) 8.8 FL (6.5-10.1) Neutrophils (%) (Auto) 78.7 % (45.0-75.0) H 71.2 % (45.0-75.0) Lymphocytes (%) (Auto) 15.3 % (20.0-45.0) L 22.0 % (20.0-45.0) Monocytes (%) (Auto) 4.8 % (1.0-10.0) 5.7 % (1.0-10.0) Eosinophils (%) (Auto) 0.3 % (0.0-3.0) 0.3 % (0.0-3.0) Basophils (%) (Auto) 0.8 % (0.0-2.0) 0.8 % (0.0-2.0) Erythrocyte Sedimentation Rate 27 MM/HR (0-20) H Prothrombin Time 13.2 SEC (9.30-11.50) H 12.7 SEC (9.30-11.50) H Prothromb Time International Ratio 1.3 (0.9-1.1) H 1.2 (0.9-1.1) H Activated Partial Thromboplast Time 30 SEC (23-33) 30 SEC (23-33) Sodium Level 143 MMOL/L (136-145) Potassium Level 4.1 MMOL/L (3.5-5.1) Chloride Level 108 MMOL/L (98-107) H Carbon Dioxide Level 27 MMOL/L (21-32) Anion Gap 8 mmol/L (5-15) Blood Urea Nitrogen 41 mg/dL (7-18) H Creatinine 3.7 MG/DL (0.55-1.30) H Estimat Glomerular Filtration Rate mL/min (>60) Glucose Level 95 MG/DL (74-106) Lactic Acid Level 1.70 mmol/L (0.4-2.0) Calcium Level 9.2 MG/DL (8.5-10.1) Total Bilirubin 0.7 MG/DL (0.2-1.0) Aspartate Amino Transf (AST/SGOT) 29 U/L (15-37) Alanine Aminotransferase (ALT/SGPT) 10 U/L (12-78) L Alkaline Phosphatase 53 U/L (46-116) Total Creatine Kinase 104 U/L (26-308) 95 U/L (26-308) Troponin I 0.090 ng/mL (0.000-0.056) 0.078 ng/mL (0.000-0.056) Pro-B-Type Natriuretic Peptide > 84713 pg/mL (0-125) H Total Protein 6.2 G/DL (6.4-8.2) L Albumin 2.8 G/DL (3.4-5.0) L Globulin 3.4 g/dL Albumin/Globulin Ratio 0.8 (1.0-2.7) L Thyroid Stimulating Hormone (TSH) 7.706 uiU/mL (0.358-3.740) 7.160 uiU/mL (0.358-3.740) Urine Color Pale yellow Pale yellow Urine Appearance Slightly cloudy Turbid Urine pH 5 (4.5-8.0) 5 (4.5-8.0) Urine Specific [place] 1.015 (1.005-1.035) 1.020 (1.005-1.035) Urine Protein 3+ (NEGATIVE) H 3+ (NEGATIVE) H Urine Glucose (UA) Negative (NEGATIVE) Negative (NEGATIVE) Urine Ketones Negative (NEGATIVE) Negative (NEGATIVE) Urine Occult Blood 4+ (NEGATIVE) H 1+ (NEGATIVE) H Urine Nitrite Negative (NEGATIVE) Negative (NEGATIVE) Urine Bilirubin Negative (NEGATIVE) Negative (NEGATIVE) Urine Urobilinogen Normal MG/DL (0.0-1.0) Normal MG/DL (0.0-1.0) Urine Leukocyte Esterase 3+ (NEGATIVE) H 3+ (NEGATIVE) H Urine RBC 5-10 /HPF (0 - 0) H 5-10 /HPF (0 - 0) H Urine WBC 10-15 /HPF (0 - 0) H 60-80 /HPF (0 - 0) H Urine Squamous Epithelial Cells None /LPF (NONE/OCC) Occasional /LPF Urine Bacteria Moderate /HPF (NONE) H Few /HPF (NONE) Uric Acid 10.6 MG/DL (2.6-7.2) H C-Reactive Protein, Quantitative 0.9 mg/dL (0.00-0.90) Triglycerides Level 91 MG/DL (30-150) Cholesterol Level 194 MG/DL (< 200) LDL Cholesterol 115 mg/dL (<100) H HDL Cholesterol 50 MG/DL (40-60) Cholesterol/HDL Ratio 3.9 (3.3-4.4) Urine Eosinophils Pending Urine Random Sodium 118 mmol/L (20-110) H Urine Potassium Timed 14 mmol/L (12-62) Height (Feet): 5 Height (Inches): 10.00 Weight (Pounds): 192 Medications Current Medications Medications (Trade) Dose Ordered Sig/Dari Route PRN Reason Start Time Stop Time Status Last Admin Dose Admin Acetaminophen (Tylenol) 650 mg Q4H PRN ORAL FEVER 12/14/17 21:15 01/13/18 21:14 Albuterol/ Ipratropium (Albuterol/ Ipratropium) 3 ml Q4H PRN HHN Shortness of Breath 12/14/17 21:15 12/19/17 21:14 Aspirin (ASA) 162 mg DAILY ORAL 12/15/17 09:00 01/14/18 08:59 12/15/17 09:04 Ceftriaxone Sodium 1 gm/ Dextrose 55 ml @ 110 mls/hr Q24H IVPB 12/15/17 21:00 12/22/17 20:59 Diltiazem HCl (Cardizem) 10 mg Q1H PRN IV heart rate more than 120 12/14/17 21:15 01/13/18 21:14 Enalaprilat (Vasotec) 2.5 mg Q6H PRN IV sbp more than 160 12/14/17 21:15 01/13/18 21:14 12/15/17 09:05 Furosemide 100 mg/ Dextrose 100 ml @ 10 mls/hr Q10H IV 12/15/17 11:30 01/14/18 11:29 12/15/17 11:54 Heparin Sodium (Porcine) (Heparin 5000 units/ml) 5,000 units EVERY 12 HOURS SUBQ 12/15/17 09:00 01/14/18 08:59 12/15/17 09:04 Nifedipine (Adalat) 10 mg Q8HR ORAL 12/15/17 14:00 01/14/18 13:59 Nitroglycerin (Ntg) 0.4 mg Q5M PRN SL Prn Chest Pain 12/14/17 21:15 01/13/18 21:14 Ondansetron HCl (Zofran) 4 mg Q6H PRN IVP Nausea & Vomiting 12/14/17 21:15 01/13/18 21:14 Polyethylene Glycol (Miralax) 17 gm DAILYPRN PRN ORAL Constipation 12/14/17 21:15 01/13/18 21:14 Temazepam (Restoril) 15 mg HSPRN PRN ORAL Insomnia 12/14/17 21:15 12/21/17 21:14 Assessment/Plan Status: stable Assessment/Plan Assessment: Pulmonary edema CHF HTN Hypothyroid UTI Aenami NSTEMI - elevated troponin Plan: Lasix gtt to reduce edema Thyroid replacement Allopurinol to reduce uric acid BP control with nifedipine Echocardiogram to assess LV function Trend troponin - no indication for cardiac cath at this time Outpatient stress test when stable - troponin elevation likely increased wall stress from heart failure + infection Orion Marin M.D. Dec 15, 2017 12:10
[2017-12-15 16:00] VITALS: BP 153/92
[2017-12-15 16:14] VITALS: BP 190/93
[2017-12-15] MEDS ORDERED: cefTRIAXone 1 GM in D5W 55 ML IVPB SCH (21:00)
--- NOTE | 2017-12-16 10:24 | Discharge Summary ---
Discharge Summary Discharge Summary _ DATE OF ADMISSION: 12/14/2017 DATE OF DISCHARGE: 12/25/2017 CONSULTANTS: Dr. Orion Arriaza [facility] HOSPITAL COURSE: Patient is an 82-year-old male, with history of hypertension, was brought in by paramedics for complaints of increased swelling of the legs and weakness. Patient has history of CHF in the past and is not on Lasix at this time. He was unable to walk and get food because of weakness and edema. He stopped taking nifedipine because he ran out. Also stopped taking iron. On evaluation at ED, blood pressure was elevated to 190/88. He was given hydralazine, nifedipine and Nitropaste. Blood work showed elevated troponin levels 0.090. BNP was greater than 35,000. EKG with no acute changes. He was given aspirin. Blood work showed elevated creatinine to 3.7, BUN was 41. TSH was elevated to 7. Chest x-ray done showed cardiomegaly with left pleural effusion. Patient was admitted to stepdown unit. 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 He was placed on Lasix drip to reduce edema. He was given thyroid replacement and allopurinol to reduce uric acid. He was given nifedipine for blood pressure control. He was given aspirin. Venous duplex of lower extremity was negative for DVT. Patient had episodes of anxiety and was seen by psychiatrist. He was given Seroquel. Patient was subsequently transferred to contracted facility. FINAL DIAGNOSES: Non-ST elevated [place] Pulmonary edema Acute kidney injury Atrial fibrillation Urinary tract infection Acute on chronic congestive heart failure Anemia Edema Hypertension Hypothyroidism Anxiety disorder DISPOSITION: Patient was transferred to [facility]. I have been assigned to dictate discharge summary on this account, and I was not involved in the patient's management. Beverley Uribe NP Dec 16, 2017 10:24
--- NOTE | 2017-12-16 13:37 | Cardiology Report ---
APPROVED REPORT EKG Measurement Heart [id number] Atrial fibrillation Low voltage QRS Cannot rule out Anterior infarct, age undetermined Abnormal ECG
--- NOTE | 2017-12-16 13:44 | Cardiology Report ---
APPROVED REPORT EKG Measurement Heart [id number] Sinus bradycardia with sinus arrhythmia with 1st degree AV block Anterior infarct, age undetermined T wave abnormality, consider lateral ischemia Abnormal ECG
--- NOTE | 2017-12-16 15:39 | Cardiology Report ---
APPROVED REPORT EXAM: Two-dimensional and M-mode echocardiogram with Doppler and color Doppler. INDICATION Left ventricular function M-Mode DIMENSIONS IVSd1.8 (0.7-1.1cm)Left Atrium (MM)4.5 (1.6-4.0cm) LVDd4.5 (3.5-5.6cm)Aortic Root3.3 (2.0-3.7cm) PWd2.0 (0.7-1.1cm)Aortic Cusp Exc.1.7 (1.5-2.0cm) LVDs3.0 (2.5-4.0cm) PWs2.1 cm Technically difficult study due to poor acoustical windows. Normal left ventricular chamber size. Moderately decreased systolic function and wall motion. Left ventricular ejection fraction estimated to be 35%. Moderate left ventricular hypertrophy. Large posterior pleural effusion. Small posterior pericardial effusion. Right cardiac chamber sizes are within normal limits. Moderate left atrial enlargement by 2D. Focal aortic valve sclerosis with adequate cusp excursion. Thickened mitral valve leaflets with normal excursion. Mild mitral annulus and aortic root calcification. Pulmonic valve not well visualized. Normal tricuspid valve structure. IVC is normal in size 1.0cm and non-collapsible with respiration indicate increased RA pressure. A color flow and spectral Doppler study was performed and revealed: No aortic regurgitation. Trace mitral regurgitation. Mitral diastolic velocities suggest reduced left ventricular relaxation c/w diastolic dysfunction grade 1. Trace tricuspid regurgitation. Tricuspid systolic velocities suggests peak right ventricular systolic pressure of 46 mmHg Consistent with mild pulmonary hypertension.
--- NOTE | 2017-12-16 16:45 | Diagnostic Imaging Report ---
APPROVED REPORT CPT Code: 53744 Present Symptoms Lower Extremity Edema: Bilateral BILATERAL: Imaging reveals a patent deep venous system bilaterally. There is no evidence of thrombus within the femoral, popliteal or tibial segments. The greater saphenous veins are also within normal limits. Doppler indicates normal spontaneous flow within these segments.
== END 2017-12-15 17:02 | disposition short-term general hospital (02) | DRG 280 ==
LOC: EDBD 18:41 → EMR 19:38 → EDBEDREQ 19:43 → 2W 20:02 → EDBEDREQ 20:27
DX: I21.4 Non-ST elevation (NSTEMI) myocardial infarction (principal); I50.33 Acute on chronic diastolic (congestive) heart failure; N17.9 Acute kidney failure, unspecified; N39.0 Urinary tract infection, site not specified; I48.91 Unspecified atrial fibrillation; I11.0 Hypertensive heart disease with heart failure; D64.9 Anemia, unspecified; E03.9 Hypothyroidism, unspecified; F41.9 Anxiety disorder, unspecified; Z88.1 Allergy status to other antibiotic agents; R26.2 Difficulty in walking, not elsewhere classified; Z60.2 Problems related to living alone
CPT/HCPCS: 36415; 71045; 80053; 80061; 81001; 81003; 82550; 83605; 83880; 84133; 84300; 84439; 84443; 84481; 84484; 84550; 85025; 85610; 85651; 85730; 86140; 86900; 86901; 87040; 87086; 89050; 93005; 93306; 93970